=== PATIENT | female | born 1965 | race Caucasian/White ===

== ENCOUNTER → 2017-08-31 | Outpatient (CLI) | payer BC ==
[~2017-08-31] MED LIST: LISI10TA PO
== END | disposition home or self-care (01) ==
LOC: C.PAPS 13:18
PROVIDERS: ATTEND Obstetrics & Gynecology
DX: Z12.4 Encounter for screening for malignant neoplasm of cervix (principal)

== ENCOUNTER 2022-09-14 09:52 | Observation (INO) ==
--- NOTE | 2022-08-04 12:52 | PAT Medication Instructions ---
Medication Instructions Date of Service August 04, 2022 Home Medications amlodipine 10 mg tablet 10 mg PO QAM losartan 100 mg tablet 100 mg PO QAM zolpidem 5 mg tablet (Ambien) 5 mg PO HS PRN hydroxychloroquine 200 mg tablet 200 mg PO QAM ergocalciferol (vitamin D2) 1,250 mcg (50,000 unit) capsule 1,250 mcg PO WK melatonin 10 mg tablet 20 mg PO HS PRN albuterol sulfate 90 mcg/actuation aerosol inhaler 1 inh inhalation QID PRN Medical Marijuana 1 dose PO HS PRN Continue as directed ergocalciferol (vitamin D2) 1,250 mcg (50,000 unit) capsule 1,250 mcg PO WK (do NOT take day of surgery) ASK your prescriber and surgeon hydroxychloroquine 200 mg tablet 200 mg PO QAM STOP taking 24 hours before surgery Medical Marijuana 1 dose PO HS PRN DO NOT take the morning of surgery losartan 100 mg tablet 100 mg PO QAM Take morning of surgery With a small sip of water, OTHERWISE NOTHING TO EAT OR DRINK AFTER MIDNIGHT: amlodipine 10 mg tablet 10 mg PO QAM albuterol sulfate 90 mcg/actuation aerosol inhaler 1 inh inhalation QID PRN(use if needed; please bring with you to hospital day of surgery if possible) Take evening before surgery zolpidem 5 mg tablet (Ambien) 5 mg PO HS PRN(if needed) melatonin 10 mg tablet 20 mg PO HS PRN(if needed) albuterol sulfate 90 mcg/actuation aerosol inhaler 1 inh inhalation QID PRN(if needed) Other Notes If you have any questions please call us at [phone] or [phone] or [phone] or [phone]
--- NOTE | 2022-08-11 11:02 | Anesthesiology Consultation ---
Date of Service August 11, 2022 Assessment & Plan (1) Encounter for pre-operative examination: - awaiting pre-op COVID testing to further guide DOS admission COVID test plan. Outpatient joint assessment: Patient is currently scheduled for inpatient pathway. If re-evaluated pending system levels during current pandemic/surgeon requests outpatient pathway, patient is acceptable candidate for outpatient joint program from anesthesia standpoint pending surgeon's office assessment of pt motivation/support/completion of same day joint program preop requirements. Chart Review Chart Review: Pending: Refer to Additional Notes / Consult section and Patient seen in Pre Admission Testing Teaching & Discussion Pre-Anesthesia Teaching/Discussion Notes: Instructed NPO after midnight before surgery, except medications with 15 cc of water. Medication instructions provided according to the PAT guidelines. History Surgery Operation Date: 09/14/22 07:00 Proposed Procedures p Left Total Knee Arthroplasty - Gallo Glynn MD Height/Weight Height: 5 ft 5 in Weight: 107.2 kg Allergies Allergy/AdvReac Type Severity Reaction Status Date / Time Sulfa (Sulfonamide Allergy Severe Hives Verified 08/04/22 08:32 Antibiotics) gentamicin Allergy Intermediate Rash Verified 08/04/22 08:32 Penicillins Allergy Intermediate Hives Verified 08/04/22 08:32 aspirin AdvReac Intermediate History of Verified 08/04/22 08:32 ulcers Medications Home Medications Medication Instructions Recorded Confirmed Last Taken amlodipine 10 mg tablet 10 mg PO QAM 12/31/19 08/04/22 09/22/21 08:30 losartan 100 mg tablet 100 mg PO QAM 12/31/19 08/04/22 09/22/21 08:30 zolpidem 5 mg tablet (Ambien) 5 mg PO HS PRN Sleep 02/22/21 08/04/22 09/21/21 21:00 hydroxychloroquine 200 mg tablet 200 mg PO QAM 09/05/21 08/04/22 09/22/21 08:30 ergocalciferol (vitamin D2) 1,250 1,250 mcg PO WK 09/07/21 08/04/22 08/19/21 08:30 mcg (50,000 unit) capsule melatonin 10 mg tablet 20 mg PO HS PRN Sleep 09/07/21 08/04/22 09/21/21 20:00 albuterol sulfate 90 mcg/actuation 1 inh inhalation QID PRN sob 09/21/21 08/04/22 Unknown aerosol inhaler Medical Marijuana 1 dose PO HS PRN Sleep 08/04/22 08/04/22 Unknown Wheeled Walker #1 ea 08/11/22 08/11/22 Unknown Past Medical History Medical History (Updated 08/11/22 @ 11:29 by Betina Sen PA-C) Asthma controlled, last rescue inhaler use 4 months ago Fibromyalgia GERD (gastroesophageal reflux disease) controlled, stable per pt History of COVID-19 Covid positive 07/17/22 (home test) Symptoms at time: fever, congestion, cough, fatigue > resolved WILL DO PCR COVID TESTING AT PAT VISIT 08/11 History of kidney stones History of stomach ulcers As child Hypertension variable, per pt usually 130/80s unless stressed or increase in knee pain MVP (mitral valve prolapse) No recent echo, "RRR without murmur" per PCP office visit 01/25/21* Obesity Raynauds syndrome Sjogren's syndrome Sleep apnea No device r/t recall Patient denies h/o stroke, seizures, heart attack, heart failure, DM, blood clots or blood transfusions. Exercise / Class Metabolic Activity III < 4 Walking/Shop/Light housework (denies CP or SOB with usual activities) Past Family History Family History Mother Dementia Hypertension Father Non-Hodgkin lymphoma Hypertension Grandfather (Paternal) Non-Hodgkin lymphoma Family/Other Allergies "everyone" Sister Asthma Other No family history of adverse response to anesthesia No family history of bleeding disorder Denies family history of Ovarian cancer Breast cancer Colorectal cancer Past Surgical History Surgical History (Updated 08/11/22 @ 11:13 by Betina Sen PA-C) History of bunionectomy Right History of carpal tunnel release R/L History of colonoscopy History of cystoscopy Left cystoscopy, ureteronephroscopy (no stone visualized, likely recent passed stone per operative report)- 09/23/21: LMA#4 at [facility]. No issues noted per post-op anesthesia progress note. History of elbow surgery L. Radial fracture repair History of placement of ear tubes History of tonsillectomy and adenoidectomy Hx of total knee arthroplasty Right S/P dilation and curettage S/P wisdom tooth extraction Past Anesthesia History No Hx of Anesthesia Complications and Other (mother with PONV) History of PONV History of PONV (denies needing scop patch) Social History Smoking Status: Never smoker Do You Dip or Chew Tobacco: No Hx Alcohol Use: Yes Alcohol type: wine alcohol intake frequency: holidays/special occasions only Hx Substance Use: No substance use type: marijuana (medical marijuana-advised) Review of Systems Patient denies chest pain, shortness of breath, dyspnea on exertion, fever, chills, cough, wheezing, or palpitations. Physical Exam Vital Signs Vitals BP 158/86 P 70 TEMP 98.7 SP02 99% on RA RESP 18 Physical Full cervical extension range of motion without pain TMD < 3 finger breadths Mallampati Score 2 Dentition: intact, implant upper right back, several crowns; denies Lungs: normal respiratory effort. Clear throughout to auscultation, no adventitious breath sounds Cardiac: regular rate and rhythm, no murmurs noted Carotid arteries: negative bruit bilat Lab Results Anesthesia Preop Results Results Anesthesia Widget: WBC 4.81 K/ul (4.8-10.8) 08/11/22 Hgb 14.0 g/dl (12.0-16.0) 08/11/22 Hct 42.2 % (34.1-44.9) 08/11/22 Plt 286 K/uL (130-400) 08/11/22 Na 143 mmol/L (136-145) 08/11/22 K 4.1 mmol/L (3.5-5.1) 08/11/22 Cl 106 mmol/L (98-107) 08/11/22 CO2 30 mmol/L (21-32) 08/11/22 BUN 17 mg/dl (6-23) 08/11/22 Creat 0.70 mg/dl (0.6-1.2) 08/11/22 Glucose Level 96 mg/dl (70-99(Fasting)) 08/11/22 PT 10.4 Seconds (9.0-12.0) 08/11/22 PTT 27.4 Seconds (21.0-31.0) 08/11/22 INR 1.0 (0.9-1.1) 08/11/22 Blood Type A Positive 08/11/22 Antibody Screen NEGATIVE 08/11/22 Testing Electrocardiogram Date: 09/20/21 NSR, rate 82 bpm Low voltage QRS Chest X-Ray Date: 09/20/21 No active disease in the chest. Other Testing Abdomen pelvis CT 09/07/21 1. 7 mm calculus of the distal left ureter just proximal to the ureterovesicular junction results in minimal hydroureter without hydronephrosis. 2. No bowel obstruction or bowel wall thickening. Normal appendix. 3. Moderate fecal retention. COVID-19 Risk Screen Screening Information COVID-19 Screen Date: 08/11/22 Exposure 21 Days Family/Household +COVID Last 21 Days: No Exposure 10 Days Any COVID Exposure Last 10 Days: No Symptoms Last 10 Days Experienced COVID Sx Last 10 Days: No + COVID 0-90 Days COVID + in Last 0-90 Days: Yes + COVID Test 0-10 Day: Yes
--- NOTE | 2022-09-10 15:34 | History and Physical Report ---
CHIEF COMPLAINT: Left knee pain. HISTORY OF PRESENT ILLNESS: The patient is a 57-year-old female, who specifically presents for treat ment of her left knee. She comes specifically for knee replacement surgery. She has got a long hist ory of knee problems. Had the right knee replaced at [facility] in [place] about 9 years ago. She has done well from this. Over the past year, particularly, she developed increased pain and discomfort i n her left knee. It is global pain. Mostly anteromedial. She has had injections, which have become less successful over time. She has become more debilitated by her disease. She is happy with the r ight knee and would like to have her left knee replaced. PAST MEDICAL HISTORY: Significant for: 1. Mitral valve prolapse. 2. Hypertension. 3. Asthma. 4. Obesity with a BMI of 37. 5. Sleep apnea. 6. Arthritis. 7. Kidney stones. PREVIOUS SURGERIES: Include, 1. Right bunionectomy, 04/2022. 2. Right knee replacement done at [facility] in 2012. 3. Left elbow surgery x2. ALLERGIES: PENICILLIN, WHICH CAUSES HIVES. SULFA, WHICH CAUSES HIVES. ALSO, SENSITIVITY TO NSAIDS, BUT CAN TAKE BABY ASPIRIN. HISTORY OF ____ IN THE PAST. CURRENT MEDICATIONS: Include, 1. Plaquenil 200 mg. 2. Losartan. 3. Amlodipine. 4. Vitamin D. 5. Melatonin. 6. Medical marijuana. 7. Ambien. SOCIAL HISTORY: She is a 57-year-old female. Does not smoke. Couple drinks per week. FAMILY HISTORY: Noncontributory. REVIEW OF SYSTEMS: Negative for diabetes. Denies any current chest pain or shortness of breath. No history of DVT or PE. No known bleeding problems. PHYSICAL EXAMINATION: GENERAL: A pleasant middle-aged female. Looks to be in reasonably good health. HEENT: Benign. NECK: Supple. No lymphadenopathy. LUNGS: Clear to auscultation. HEART: Has a regular rate and rhythm. ABDOMEN: Soft, nontender, nondistended. EXTREMITIES: Grossly neurovascularly intact except as follows: Examination of the left knee reveals the patient walks with a slight bit of a limp. She has got a [id number] soft tissue envelope . Range of motion is near full extension to 120 degrees of flexion. There is no instability. No pa in with hip motion. X-RAYS: X-rays of the left knee revealed advanced left knee DJD. She has got complete loss of media l joint space. She has subchondral sclerosis. The right knee replacement looks to be in good positi on without signs of problems. ASSESSMENT: A 57-year-old white female 9 years out from right knee replacement with multiple medical comorbidities including obesity, hypertension, asthma, sleep apnea, kidney stones, who presents for total knee replacement. The risks and benefits of knee replacement were explained to the patient and include, but not limited to DVT, PE, , infection, neurological injury, vascular injury, bleedin g problem, pain, limited range of motion, incomplete relief of symptoms, etc. The patient understand s and desires to proceed. Informed consent was obtained. MEDICINES: No new medicines. She will continue on Plaquenil for now. WORK OR SCHOOL RESTRICTIONS: None. RETURN VISIT: 2 weeks postop. Job ID: [id number]
[~2022-09-14 09:52] MED LIST changes: +ACETAMINOPHEN 500 MG TAB PO SCH; +BUPIVACAINE 0.5 % 5 MG/1 ML PF 10ML VIAL ONE; +BUPIVACAINE LIPOSOME/PF 266 MG, BUPIVACAINE/EPINEPHRINE 50 ML, SODIUM CHLORIDE 0.9% 30 ... INFIL SCH; +CeleBREX 200 MG CAP PO SCH; +FAMOTIDINE 20 MG TAB PO SCH; -LISI10TA PO; +LR 500ML BOLUS, THEN 15ML/HR IV SCH; +LR 60ML/HR IV SCH; +METOCLOPRAMIDE HCL 10 MG TABLET PO SCH; +ROPIVACAINE 0.5% 5 MG/ML 30 ML VIAL ONE; +Scopolamine 1 MG TDSY TD SCH; +TRANEXAMIC ACID 1,000 MG **IV Intra-op IV SCH; +ceFAZolin 2000MG 2,000 MG/15 ML SYR IV SCH
--- NOTE | 2022-09-14 10:37 | History & Physical Bridge Note ---
Date of Service September 14, 2022 History & Physical Bridge Note I have examined the patient, reviewed the History & Physical and in the interval since the performance of the History & Physical I have noted the following changes of clinical significance: no changes noted
[2022-09-14] MEDS ORDERED: BUPIVACAINE/EPINEPHRINE 0.25% 1:200,000 30 ML VIAL ONE (10:52)
[2022-09-14] MEDS ORDERED: SODIUM CHLORIDE 0.9% PF 50 ML VIAL ONE (10:52)
[2022-09-14] MEDS ORDERED: BUPIVACAINE LIPOSOME 1.3% 266 MG/20 ML VIAL ONE (10:53)
[2022-09-14] MEDS ORDERED: MIDAZOLAM HCL 1 MG/ML 2ML VIAL ONE ×2 (11:12→11:57)
[2022-09-14] MEDS ORDERED: PROPOFOL IV EMULSION 10 MG/ML 20 ML VIAL IV ONE ×4 (12:43→13:28)
[2022-09-14] MEDS ORDERED: ONDANSETRON INJ 2 MG/ML 2 ML VIAL ONE (12:43)
[2022-09-14] MEDS ORDERED: LIDOCAINE 2% MPF LOCAL 5 ML VIAL INFIL ONE (12:43)
--- NOTE | 2022-09-14 14:36 | Operative Report ---
PG Post Operative Report Pre & Post Diagnosis Operation Date: 09/14/22 12:30 Pre-Op Diagnosis: Left Knee Degenerative Joint Disease Post-Op Diagnosis: Left Knee Degenerative Joint Disease I identified the patient and participated in the time-out.: Yes Procedure Operation Date: 09/14/22 12:30 Actual Procedures p Left Total Knee Arthroplasty(Left) - Gallo Glynn MD Surgeon Gallo Glynn MD Emergency Generator Mechanic Kobe Dietz PA-C Estimated Blood Loss 50 Findings Consistent with Post-Op Diagnosis Operative findings revealed a very large soft tissue envelope. She had grade 4 [id number] disease of the medial compartment of her knee. Moderate-sized joint effusion. Fluids 1000 cc Specimens Left knee sent for pathology Drains None Anesthesia Type Spinal MAC Complications none Disposition Accompanied Patient To Recovery: No Indications Patient is a 57-year-old obese female whose had a long history of knee problems. She had a right knee replaced 9 years ago and is done pretty well from this. He became more debilitated by left knee pain discomfort this time is gone on. X-rays show advanced knee arthritis. Primarily almost exclusively in the medial compartment. She elected proceed with surgical treatment. Description of Procedure Operative implants consist of: 1 Biomet Vanguard size 62.5 left posterior stabilized femoral component. 2. Biomet size 67 tibial tray. 3. 12 mm posterior stabilized polyethylene insert. 4. 28 x 8 all Paller patella. The patient was taken the operating, identified, placed on the operating table supine position. All contact areas were properly padded. IV antibiotics tried by anesthesia team. A spinal anesthetic and abductor canal block had provided holding area. Rocha catheter was placed in sterile fashion. Left thigh tent was then placed in left lower extremity and prepped draped in usual sterile fashion. The left leg was elevated exsanguinated with use of an Esmarch interspaced at 350 mmHg. An anterior posterior left knee was then performed through a longitudinal incision centered over the patella. Sharp dissection was got through subcutaneous tissue down the extensor mechanism. A medial parapatellar throbbed incision was made. Some subperiosteal dissection was carried out medially. The fat pad was dissected from Neath patella tendon. The lateral patella from ligament was released. Patella subluxated laterally the knee was flexed. The osteophytes were taken off distal femur. ACL and PCL were then released and the distal femur the tibia subluxated anteriorly. The external tibial alignment jig was then placed in the interface the tibia just 14 mm medially. Proximal tibial cut was made remove 2 mm of bone from the most deficient aspect medial to plateau. The tibia sized to a size 67. Attention drawn the femur. The distal femur with a sharp drill bit intramedullary canal was suction. A left 5 degree valgus cutting guide was placed but this femoral cutting block was pinned in place but distal femoral cut was made to take an additional 3 mm bone off distal femur. The femur was then sized to size 62.5. The AP cutting block was pinned parallel to the epicondylar axis which was 4 degrees of external rotation. The anterior cut, anterior chamfer, posterior cut, posterior chamfer cuts were made for the box cutting guide was placed in just slight lateral box cut was made for the knee was flexed to the remnants of the medial and lateral menisci were excised. The osteophytes were taken off the posterior superior aspect of the femur. A trial femoral component was placed. Tibial tray was pinned in maximum external rotation and the drill and stem punch used to create defect in proximal tibia for the tibial tray. The knee was then trialed and the 12 mm insert fit most appropriately. Attention was then drawn to the patella. The patella was cleaned of all soft tissues. Patella thickness measured 19 mm in thickness and was cut down to 13. Was sized to a size 28 patella. The lug holes were drilled for the 28 patella. Lateral osteophytes removed the patella button was placed. Knee was taken through range of motion patella tracked nicely with no thumbs test. Attention drawn to placing permanent components. Nupathe all trial components were removed. Bone plug was placed in the distal femur limit blood loss. Double batch Palacos G cement was mixed. A Biomet Vanguard size 62.5 left posterior stabilized femoral component, size 67 tibial tray, 12 mm posterior stabilized polyethylene insert, and a 28 x 8 all Paller patella then cemented in place. Knee was brought out in full extension total cement hardened. Final cement check then performed. Pericapsular tissues were injected with total 100 cc of combination of 20 of Exparel, 30 cc normal saline, 50 cc of quarter percent Marcaine with epinephrine. Patient did receive 1 g tranexamic acid. The tourniquet was then let down for final tourniquet time of 55 minutes. Hemostasis assured with electrocautery. Extensor mechanism closed with combination 1 PDS suture #1 Vicryl suture in [id number] fashion. Extensor mechanism checked found intact the subcutaneous tissues then closed with 2 Dexon suture in a buried erupted fashion skin was closed skin danya. Legs then cleaned and dried and sterile dressing was Xeroform, 4 fours, sterile cast padding, Salty bandage applied. Patient then transferred to the recovery in stable condition. Patient tolerated procedure well no complications. Kobe Dietz, my physician assistant producer, was present for the entire procedure. His assistance was essential and required for appropriate patient positioning, prepping and draping, surgical exposure, performing the technical details of the operation, placement the implants, closure of the wound, and placement of the sterile bandage. I attest to the content of the Intraoperative Record and any orders documented therein. Any exceptions are noted below.
--- NOTE | 2022-09-14 15:02 | XRay Report ---
XR knee LT 1 or 2V routine CLINICAL HISTORY: Surgical Post Op TECHNIQUE: 2 views of the left knee were obtained. Comparison: Comparison is made to left knee radiographs 05/27/2020 FINDINGS: Patient is status post total knee arthroplasty with expected postsurgical changes including soft tiss ue swelling and subcutaneous emphysema. No periarticular lucency or hardware fracture is seen. IMPRESSION: Expected postoperative appearance status post placement of total knee arthroplasty. ACT 112: Negative or not required by law. Electronically signed by: Michael Reed M.D. 09/14/2022 3:00 PM
--- NOTE | 2022-09-14 15:17 | Anesthesiology Progress Note ---
Date of Service September 14, 2022 Anesthesia Post Procedure Vital Signs Vital Signs: Temp Pulse Pulse Resp BP BP Pulse Ox 09/14/22 15:10 71 12 125/80 92 09/14/22 15:00 72 16 127/70 94 09/14/22 14:50 74 15 117/80 94 09/14/22 14:40 76 15 130/80 97 09/14/22 14:30 79 17 120/76 100 09/14/22 14:23 36.3 C L 86 15 133/71 100 09/14/22 10:24 37.0 C 82 18 158/91 H 98 O2 Del Method O2 Flow Rate 09/14/22 15:10 Room Air 09/14/22 15:00 Room Air 09/14/22 14:50 Room Air 09/14/22 14:40 Oxymask 6 09/14/22 14:30 Oxymask 6 09/14/22 14:23 Oxymask 6 09/14/22 10:24 Room Air Pain Intensity Left Knee: Pain Intensity: 7 Transfer of Care Handoff Completed per policy Notes Mental Status: alert / awake / arousable Patient Amnestic to Procedure: Yes Nausea / Vomiting: adequately controlled Pain: adequately controlled Airway Patency, RR, SpO2: stable & adequate BP & HR: stable & adequate Hydration State: stable & adequate Anesthetic Complications: no major complications apparent
[2022-09-14] MEDS ORDERED: MAGNESIUM HYDROXIDE SUSP 30 ML UDC PO PRN (16:21)
[2022-09-14] MEDS ORDERED: ONDANSETRON INJ 2 MG/ML 2 ML VIAL IV PRN (16:21)
[2022-09-14] MEDS ORDERED: bisacodyL 10 MG SUPP PR PRN (16:21)
[2022-09-14] MEDS ORDERED: NALOXONE HCL 0.4 MG/1 ML VIAL/CARP IV PRN (16:21)
[2022-09-14] MEDS ORDERED: ALBUTEROL HFA 8 GM INHALER INH PRN (16:21)
[2022-09-14] MEDS ORDERED: ZOLPIDEM TARTRATE 5 MG TAB PO PRN (16:21)
[2022-09-14] MEDS ORDERED: SODIUM CHLORIDE 0.9% 1000ML 1,000 ML IV SCH (16:21)
[2022-09-14] MEDS ORDERED: diphenhydrAMINE Capsule 25 MG CAP PO PRN (16:21)
[2022-09-14] MEDS ORDERED: ALUMINUM/MAGNESIUM SUSP 30 ML UDC PO PRN (16:21)
[2022-09-14] MEDS ORDERED: HYDROmorphone INJ 1 MG/ML SYRINGE IV PRN (16:21)
[2022-09-14] MEDS ORDERED: METOCLOPRAMIDE HCL INJ 5 MG/ML 2 ML VIAL IV PRN (16:21)
[2022-09-14] MEDS ORDERED: MELATONIN 3 MG TAB PO PRN (16:44)
[2022-09-14] MEDS ORDERED: MEDICAL MARIJUANA PO PRN (16:52)
[2022-09-14] MEDS: Scopolamine CHECK PATCH PLACEMENT SCH (16:58)
[2022-09-14] MEDS: ASCORBIC ACID 500 MG TAB PO SCH (17:46)
[2022-09-14] MEDS: KETOROLAC 30 MG/ML VIAL IV SCH ×2 (17:46→22:41)
[2022-09-14] MEDS: ceFAZolin 2000MG 2,000 MG/15 ML SYR IV SCH (19:59)
[2022-09-14] MEDS ORDERED: TRANEXAMIC ACID / 0.7% NACL 1,000 MG/100 ML BAG IV SCH (20:45)
[2022-09-14] MEDS: TAPENTADOL HCL ER 50 MG TABCR PO SCH (21:00)
[2022-09-14] MEDS ORDERED: SENNA 8.6 MG TAB PO SCH (21:00)
[2022-09-14] MEDS: ACETAMINOPHEN 500 MG TAB PO SCH (21:00)
[2022-09-14] MEDS: ASPIRIN 81 MG ECTAB PO SCH (21:01)
[2022-09-14] MEDS: DOCUSATE SODIUM 100 MG CAP PO SCH (21:02)
[2022-09-14] MEDS: oxyCODONE HCL IR 5 MG TAB (IMMEDIATE RELEASE) PO PRN (22:41)
[2022-09-15] MEDS: Scopolamine CHECK PATCH PLACEMENT SCH ×2 (00:17→08:28)
[2022-09-15] MEDS: ceFAZolin 2000MG 2,000 MG/15 ML SYR IV SCH (04:29)
[2022-09-15] MEDS: KETOROLAC 30 MG/ML VIAL IV SCH ×2 (04:29→11:15)
[2022-09-15] MEDS: ACETAMINOPHEN 500 MG TAB PO SCH (05:58)
--- NOTE | 2022-09-15 07:41 | Progress Notes ---
DATE OF NOTE: 09/15/2022. SUBJECTIVE: A 57-year-old white female, postoperative day 1 from a left knee replacement. She is do ing pretty well. Pain is controlled. Had a pretty good night. No chest pain or shortness of breath . Not feeling dizzy or lightheaded. OBJECTIVE: VITAL SIGNS: Temperature 36.8. Vital signs are stable. GENERAL: Shows a pleasant middle-aged female. She is sitting up in bed this morning, looks pretty c omfortable. LUNGS: Clear to auscultation. HEART: Regular rate and rhythm. ABDOMEN: Soft, nontender, nondistended. EXTREMITIES: Grossly neurovascularly intact except as follows. Examination of the left leg reveals the dressing to be clean, dry and intact. Fairly large soft tiss ue envelope. She can do a good straight leg raise. She can dorsiflex and plantarflex her foot appro priately. She is neurologically intact. LABORATORY DATA: Labs are pending. ASSESSMENT: A 57-year-old white female, postoperative day 1 from left knee replacement, doing pretty well. Pain is controlled. She is neurologically intact. PLAN: 1. DVT prophylaxis includes thigh-high TEDs, SCDs, and aspirin twice a day. 2. PT/OT. She can weight bear as tolerated. Left total knee protocol. 3. Pain control, doing okay with current pain regimen. 4. Disposition: Plan to discharge to home with some home health. We will see how therapy goes [email or web address] obi Job ID: [id number]
[2022-09-15] MEDS ORDERED: dexAMETHasone 10 MG in SYRINGE 0 ML IV SCH (08:00)
[2022-09-15] MEDS: ASCORBIC ACID 500 MG TAB PO SCH (08:27)
[2022-09-15] MEDS: DOCUSATE SODIUM 100 MG CAP PO SCH (08:27)
[2022-09-15] MEDS: ASPIRIN 81 MG ECTAB PO SCH (08:28)
[2022-09-15] MEDS ORDERED: HYDROXYCHLOROQUINE SULFATE 200 MG TAB PO SCH (09:00)
[2022-09-15] MEDS ORDERED: amLODIPine BESYLATE 5 MG TAB PO SCH (09:00)
[2022-09-15] MEDS ORDERED: MULTIVITAMIN TAB PO SCH (09:00)
[2022-09-15] MEDS ORDERED: LOSARTAN POTASSIUM 50 MG TAB PO SCH (09:00)
[2022-09-15] MEDS ORDERED: DOCUSATE SODIUM/SENNA 50/8.6MG TAB PO SCH (09:00)
[2022-09-15] MEDS ORDERED: PANTOprazole 40 MG TAB PO SCH (09:00)
[2022-09-15] MEDS: oxyCODONE HCL IR 5 MG TAB (IMMEDIATE RELEASE) PO PRN (09:05)
[2022-09-15] MEDS: TAPENTADOL HCL ER 50 MG TABCR PO SCH (09:05)
[2022-09-15 09:58] LABS: Hematocrit (blood only) 37.6 % (34.1-44.9); Hemoglobin 12.3 g/dl (12.0-16.0); Mean Corpuscular Hemoglobin 31.1 pg (25.0-34.0); Mean Corpuscular Hgb Conc 32.7 g/dL (32.0-36.0); Mean Corpuscular Volume 94.9 fL (80.0-100.0); Mean Platelet Volume 9.7 fL (9.4-12.3); Platelet Count 267 K/uL (130-400); RDW Coefficient of Variation 12.9 % (11.5-14.5); RDW Standard Deviation 45.2 fL (36.4-46.3); Red Blood Count 3.96 M/uL (3.93-5.22); White Blood Count 9.27 K/ul (4.8-10.8)
[2022-09-15 10:17] LABS: Calcium 9.4 mg/dl (8.5-10.1); Creatinine Clr Calc Pharmacy 107.5 ml/min; Est GFR (African American) 108.5 ml/min; Est GFR (Non-African American) 93.6 ml/min
--- NOTE | 2022-09-18 06:59 | Discharge Summary ---
Date of Service September 18, 2022 Discharge Data Procedures Performed Operation Date: 09/14/22 12:30 Actual Procedures p Left Total Knee Arthroplasty(Left) - Gallo Glynn MD Hospital Course (1) Status post total left knee replacement: This is a 57 year old patient admitted on 09/14/22 and underwent total knee arthroplasty. She tolerated the procedure well and there were no complications. Transferred to the PACU post op and later to the orthopedic floor for further care. She was given ancef for antibiotic prophylaxis. She was also given MAYRA stockings, SCDs, and aspirin for DVT prophylaxis. Hemoglobin, hematocrit, and vital signs were monitored during her hospital stay and remained stable. Did not require any blood transfusions. There were no complications during her hospital stay. By post op day #1 the patient was tolerating a regular diet, pain was reasonably controlled with oral pain medicine, and she was participating in physical therapy. On post op day #1 the patient was discharged home and set up with home health care. She was given printed discharge instructions including prescriptions for extra strength tylenol, aspirin, ketorolac, zofran, senokot, and oxycodone. Continue physical therapy, weight bearing as tolerated. Continue MAYRA stockings. Follow up approximately 2 weeks post op or sooner if there are problems or concerns. Coding Level of Care Code None Diagnoses Status post total left knee replacement Z96.652
[2022-09-18] MEDS ORDERED: ERGOCALCIFEROL 50,000 UNITS 1250 MCG CAP PO SCH (09:00)
== END 2022-09-15 13:16 | disposition home health service (06) ==
LOC: ASU 09:52 → 3E 09:52